=== PATIENT | male | born 1975 | race Caucasian/White ===

== ENCOUNTER 2018-06-05 08:42 | Emergency (ER) | payer OTHER ==
[2018-06-05 08:52] VITALS: BP 142/103
--- NOTE | 2018-06-05 08:54 | UC ---
Knee Pain HPI - HPI Summary HPI Summary: 43 y/o male presents to the urgent care c/o RT knee pain and swelling for the past 3 days. Pt doesn't recall any previous injury. However he walks 1 mile almost everyday. Pt states Wednesday was his last walk since after he returned from work he developed RT knee pain. Yesterday he walk up w/ swelling and mild redness over knee and warm to touch. Pain is sharp w/ movement 6/10, specially w / flexion. Pt recalled he has a similar episode about 2 years ago in [place] which resolved in 1 week w/o any treatment. He also states he had a sore throat about 2 days prior his RT knee symptoms started. Pt denies fever, numbness or tingling sensation over the RT lower extremity, previous injury, Hx of STD's, SOB, chest pain, abdominal pain, N/V/D. He took ibuprofen yesterday for pain. - History of Current Complaint Stated Complaint: R KNEE COMPLAINT Time Seen by Provider: 06/05/18 08:50 Hx Obtained From: Patient Onset/Duration: Gradual Onset, Lasting Days - 3 days, Still Present, Worse Since - today Severity Initially: Mild Severity Currently: Moderate Pain Intensity: 6 Pain Scale Used: 0-10 Numeric Character: Sharp - w/ movement, Dull - at rest Aggravating Factor(s): Movement, Other - flexion Alleviating Factor(s): Rest, OTC Meds Associated Signs And Symptoms: Positive: Swelling, Redness. Negative: Bruising , Fever, Weakness, Numbness, Tingling Able to Bear Weight: Yes - Risk Factors Septic Arthritis Risk Factor: Negative Gout Risk Factor: Age ^ 38, Male - Allergies/Home Medications Allergies/Adverse Reactions: Allergies Allergy/AdvReac Type Severity Reaction Status Date / Time No Known Allergies Allergy Verified 06/05/18 08:53 PMH/Surg Hx/FS Hx/Imm Hx Previously Healthy: Yes - Pt denies PMHX - Family History Known Family History: Positive: Hypertension - Social History Occupation: Employed Full-time Lives: With Family Review of Systems All Other Systems Reviewed And Are Negative: Yes Constitutional: Positive: Negative Skin: Positive: Rash - over Rt knee w/ swelling and tender Eyes: Positive: Negative ENT: Positive: Negative Respiratory: Positive: Negative Cardiovascular: Positive: Negative Gastrointestinal: Positive: Negative Genitourinary: Positive: Negative Motor: Positive: Negative Neurovascular: Positive: Negative Musculoskeletal: Positive: Decreased ROM - Rt knee, Other: - Rt knee pain Neurological: Positive: Negative Psychological: Positive: Negative Is Patient Immunocompromised?: No Physical Exam - Summary Physical Exam Summary: Vital Signs Reviewed: Yes General: well developed, well nourished male sitting in the examining table w/o any apparent distress Eyes: Positive: Conjunctiva Clear - PERRLA, EOMI, fundi grossly normal ENT: Positive: Normal ENT inspection, Hearing grossly normal, Pharynx normal, TMs normal Neck: Positive: Supple, Nontender, No Lymphadenopathy Respiratory: Positive: Chest nontender, Lungs clear, Normal breath sounds, No respiratory distress Cardiovascular: Positive: RRR, No Murmur, Pulses Normal, Brisk Capillary Refill Abdomen Description: Positive: Nontender, No Organomegaly, Soft. Negative: CVA Tenderness (R), CVA Tenderness (L) Bowel Sounds: Positive: Present Musculoskeletal: Positive: Strength Intact, RT Knee: Pt is able to bear weight , but ambulate with limping. No surface trauma, positive soft tissue swelling, and effusion w/ overlying mild erythema and warmth over the superior lateral aspect of the RT knee. The R knee is without obvious asymmetry or deformity when compared with the L knee. Decreased ROM of LF knee due to pain, specially on flexion. PT tenderness over the infrapatellar tendon. Point tenderness over the medial joint line, No tenderness over the medial or lateral tibial plateaus. No tenderness over the proximal fibular head, No tenderness, fullness or mass of the popliteal fossa. positive quadriceps tenderness. No laxity of the ACL. PCL, MCL, or LCL. no collateral ligament laxity to valgus or varus stress. Negative Lacy/Drawer sign. Wisam test unable to perform due to pain. Distal motor and neurovascular status intact. Neurological Exam: Normal Psychological Exam: Normal Skin Exam: Normal Triage Information Reviewed: Yes Knee Pain Course/Dx - Course Course Of Treatment: 43 y/o male presents to the urgent care c/o RT knee pain and swelling for the past 3 days. Pt doesn't recall any previous injury. However he walks 1 mile almost everyday. Pt states Wednesday was his last walk since after he returned from work he developed RT knee pain. Yesterday he walk up w/ swelling and mild redness over knee and warm to touch. Pain is sharp w/ movement 6/10, specially w/ flexion. Pt recalled he had a similar episode about 2 years ago in [place] which resolved in 1 week w/o any treatment. He also states he had a sore throat about 2 days prior his RT knee symptoms started. Pt denies fever, numbness or tingling sensation over the RT lower extremity, previous injury, Hx of STD's, SOB, chest pain, abdominal pain, N/V/D. He took ibuprofen yesterday for pain. Hx obtained. Pt w/ RT knee effusion and soft tissue swelling and erythema over the superior lateral aspect of the RT knee on examination. RT knee X-ray ordered. Impression:No acute osseous injury, moderate effusion observed. RApid strep=negative. Pt needs RT need arthrocenthesis to r/o septic joint. I discussed Pt's symptoms w/ Dr Singh. He evaluated Pt and since there is overlying erythema over the superior lateral aspect of RT knee he recommended to call Orthopedic telephone directory deliverer DR Perdomo for the arthrocenthesis. I call DR Perdomo and discussed Pt's symptoms and she agreed to see Pt tomorrowin her office for arthrocenthesis and further evaluation and treatment. Pt given a toradol IM inj for pain by the Nurse . Pt evaluated IM inj and pain decrease. Pt's knee immobilized w/ tanesha-bandage and given crutches for comfort and ambulation. Pt strongly advised to f/u tomorrow morning w/ Dr Perdomo for further management on his symptoms. Pt's BP is elevated today advised to decrease salt in diet, monitor BP and f/u with PCP for further management. D /C instructions explained. Pt understood and agreed w/plan of care. Pt left clinic ambulating w/ the help of crutches - Differential Dx/Diagnosis Differential Diagnosis/HQI/PQRI: Bursitis, Cellulitis, Contusion, Dislocation, Fracture (Closed), Gout, Infection, Phlebitis, Sprain, Strain, Tendonitis Provider Diagnosis: Knee effusion, right, Knee pain, acute, Elevated BP without diagnosis of hypertension - Physician Notifications Discussed Patient Care With: Gertrude Perdomo - DR Perdomo accepted to see Pt for arthrocentesis and further maangement tomorrow at her office. Discharge - Sign-Out/Discharge Documenting (check all that apply): Patient Departure - D/c home All imaging exams completed and their final reports reviewed: Yes - Discharge Plan Condition: Stable Disposition: HOME Prescriptions: Ibuprofen TAB* [Motrin TAB* 800 MG] 800 mg PO Q6H PRN #30 tab PRN Reason: Pain Patient Education Materials: Swollen Knee Joint (ED), Low-Sodium Diet (ED) Forms: *Work Release Referrals: Juan Pablo Kelsey MD [Primary Care Provider] - 1 Day Gertrude Perdomo MD [Medical Doctor] - 1 Day Additional Instructions: 1-Please take Ibuprofen PO q6-8hrs after meals starting tomorrow to alleviate pain and swelling. You were given toradol today 2-Please apply ice, keep your knee immobilized with tanesha- bandage 3- I spoke w/ Orthopedic Dr Perdomo, please call her office tomorrow in the morning to make an appt, she is expecting you for further evaluation and treatment. 4- Your BP is elevated today. please decrease salt in your diet, monitor BP and if it continues to be elevated please f/u with your PCP for further management - Billing Disposition and Condition Condition: STABLE Disposition: Home
[2018-06-05] MEDS ORDERED: Ketorolac INJ* 30 MG/ML 1 ML VIAL IM ONE (09:08)
== END 2018-06-05 10:41 | disposition home or self-care (01) ==
LOC: UCEAST 08:42
DX: M25.461 Effusion, right knee (principal); X50.3XXA Overexertion from repetitive movements, initial encounter; Y93.01 Activity, walking, marching and hiking; Y92.9 Unspecified place or not applicable; R03.0 Elevated blood-pressure reading, without diagnosis of hypertension
CPT/HCPCS: 36415; 86703; 87651; 96372; 99203; G0463; J1885